=== PATIENT | female | born 1960 | race Caucasian/White ===

== ENCOUNTER 2017-08-31 09:37 | Emergency (ER) | payer BC ==
[~2017-08-31] VITALS: Ht 157.5 cm; Wt 65.0 kg
[2017-08-31 09:39] VITALS: BP 141/69; PULSE 89; RESP 16; TEMP 98.1; O2SAT 97
--- NOTE | 2017-08-31 10:44 | PD ---
HPI Chief Complaint: Cold / Flu Symptoms Time Seen by Provider: 10:36 Travel History International Travel<30 days: No Contact w/Intl Traveler<30days: No Traveled to known affect area: No History of Present Illness HPI This patient complains of congestion and sore throat and cough. She coughs her anterior chest hurts but that is the only time it is bothering her. She denies fever. She quit smoking 8 years ago. Duration is 4 days PFSH Past Medical History Diminished Hearing: No Tetanus Vaccination: > 5 Years Influenza Vaccination: No ?: Not Menopausal: Yes Past Surgical History Appendectomy: Yes Gynecologic Surgery: Yes (leap procedure) Social History Alcohol Use: Yes (socially) Tobacco Use: No Substance Use: No Allergies-Medications (Allergen,Severity, Reaction): Coded Allergies: penicillin G (Verified Allergy, Unknown, 08/31/17) PT STATES CHOOSE NOT TO TAKE THIS MEDICATION FAMILY HX OF ALLERGIC REACTION Reported Meds & Prescriptions Reported Meds & Active Scripts Active No Active Prescriptions or Reported Medications Review of Systems General / Constitutional: No: Fever HENT: No: Headaches Respiratory: Positive: Cough Physical Exam Narrative RESPIRATORY: Respiratory effort unlabored, no retractions or use of accessory muscles. Breath sounds are clear and symmetric. Throat clear CARDIOVASCULAR: Regular rate and rhythm without murmur. Extremities showed no edema or varicosities. GASTROINTESTINAL: Abdomen soft, non-tender, nondistended. Positive bowel sounds. No hepato-splenomegaly, or palpable masses. No guarding. Data Data Last Documented VS Vital Signs Date Time Temp Pulse Resp B/P (MAP) Pulse Ox O2 Delivery O2 Flow Rate FiO2 08/31/17 09:39 98.1 89 16 141/69 (93) 97 MDM Medical Decision Making Medical Screen Exam Complete: Yes Emergency Medical Condition: Yes Medical Record Reviewed: Yes Differential Diagnosis Bronchitis, pneumonia, URI Narrative Course I have reviewed the patient's electronic medical record. Presentation is consistent with acute viral bronchitis. I do not see indication for antibiotics. Chest pain is clearly noncardiac and brought on with cough Diagnosis Primary Impression: Acute viral bronchitis Additional Instructions: The patient was advised to follow up with their physician and return if they worsen. Med/Other Pt SpecificInfo: Other Scripts No Active Prescriptions or Reported Meds Disposition: 01 DISCHARGE HOME Condition: Stable Destin Burks MD Aug 31, 2017 10:44
== END 2017-08-31 11:04 | disposition home or self-care (01) ==
LOC: PHEFT 09:37
DX: J20.8 Acute bronchitis due to other specified organisms (principal); Z87.891 Personal history of nicotine dependence
CPT/HCPCS: 99282